=== PATIENT | male | born 1950 | race Caucasian/White ===

== ENCOUNTER 2024-02-24 10:23 | Outpatient (REF) | payer MEDICARE, SELFPAY ==
--- NOTE | ~2024-02-24 | XR_ITS ---
EXAMINATION: XR CHEST CLINICAL INFORMATION: Chronic cough, chest congestion COMPARISON: None available. TECHNIQUE: 2 views of the chest were obtained. FINDINGS: HEART & VASCULARITY: There are normal cardiac size and pulmonary vascularity. LUNGS: Lungs are clear. No pneumothorax is seen. BONES: Bony skeleton is intact. XR/XR chest 2V IMPRESSION: Normal chest x-ray. Electronically signed by: Perla Botello MD 02/24/2024 02:06 PM EDT
--- NOTE | ~2024-02-24 | XR_ITS ---
EXAMINATION: XR SINUSES CLINICAL INFORMATION: Cough, chest congestion, sinus pain, sinusitis COMPARISON: None available. TECHNIQUE: 3 views of the sinuses were obtained. FINDINGS: Paranasal sinuses appear clear without air-fluid levels. No fractures are identified. No radiodense foreign bodies. There is mild nasal septum deviation to the right by 0.3 cm. XR/XR sinus min 3V IMPRESSION: 1. No radiographic evidence of sinusitis. 2. Mild nasal septum deviation to the right by 0.3 cm. Electronically signed by: Perla Botello MD 02/24/2024 02:03 PM EDT
== END 2024-02-24 10:24 | disposition home or self-care (01) ==
LOC: HO.XRAY 10:23
PROVIDERS: PCP Internal Medicine; Referring Provider Internal Medicine; Visit Provider Otolaryngology
DX: R05.3 Chronic cough (principal); J34.89 Other specified disorders of nose and nasal sinuses
CPT/HCPCS: 70220; 71046